=== PATIENT | male | born 1995 | race African-American/Black ===

== ENCOUNTER 2017-03-05 22:15 | Inpatient (IN) | payer SELFPAY ==
[~2017-03-05] VITALS: Ht 175.3 cm; Wt 108.9 kg
[2017-03-05 22:35] LABS: BASOPHIL (%) 0.7 % (0-1); BASOPHIL COUNT 0.1 K/uL (0-0.1); EOSINOPHIL (%) 1.5 % (0-5); EOSINOPHIL COUNT 0.2 K/uL (0-0.3); HEMOGLOBIN 14.3 G/DL (12.5-16.6); IMMATURE GRANULOCYTE (%) 0.9 % (0.0-0.7); LYMPHOCYTE (%) 34.9 % (15-42); LYMPHOCYTE COUNT 4.2 K/uL (1.0-2.8); MCH 28.8 PG (29.0-34.0); MCHC 34.9 G/DL (30.0-36.0); MCV 82.5 FL (86-99); MONOCYTE (%) 9.1 % (3-12); MONOCYTE COUNT 1.1 K/uL (0-0.8); NEUTROPHIL (%) 52.9 % (45-76); NEUTROPHIL COUNT 6.4 K/uL (1.8-6.4); PLATELET COUNT 247 K/uL (156-360); RBC DIS.WIDTH-CV 12.9 % (11.8-14.6); RBC DIS.WIDTH-SD 38.9 % (39-53); RED BLOOD COUNT 4.97 M/uL (4.00-5.50)
[2017-03-05 22:56] LABS: AMYLASE 60 IU/L (1-118); CHLORIDE 104 mEq/L (99-109); POTASSIUM 3.3 mEq/L (3.7-5.4); SODIUM 140 mEq/L (136-147)
[2017-03-05 22:58] LABS: GLUCOSE 168 mg/dL (70-99)
[2017-03-05 23:01] LABS: SERUM ETHYL ALCOHOL < 10 mg/dL
[2017-03-05 23:02] LABS: GFR ESTIMATE (CALCULATED) > 59 mL/min/ (58.99-99999)
[2017-03-05 23:03] LABS: UREA NITROGEN (BUN) 11 mg/dL (9-23)
[2017-03-05 23:05] LABS: LIPASE 10 U/L (1.0-51.0)
[2017-03-05 23:30] LABS: APPEARANCE CLEAR ((CLEAR)); BILIRUBIN NEGATIVE; BLOOD NEGATIVE; COLOR YELLOW ((YELLOW)); GLUCOSE (STRIP) 50; KETONES NEGATIVE; LEUKOCYTES NEGATIVE; NITRITE NEGATIVE; PROTEIN (STRIP) NEGATIVE; SPECIFIC GRAVITY 1.021 (1.000-1.030); UCUL ADDED? NO; UROBILINOGEN 0.2 MG/DL (0.2-1.0)
[2017-03-05 23:37] LABS: AMPHETAMINE NEGATIVE (500 ng/mL); BARBITURATES NEGATIVE (200 ng/mL); BENZODIAZEPINES NEGATIVE (150 ng/mL); BUPRENORPHINE NEGATIVE (10 ng/mL); COCAINE NEGATIVE (150 ng/mL); METHADONE NEGATIVE (200 ng/mL); METHAMPHETAMINE NEGATIVE (500 ng/mL); OPIATES (MORPHINE) NEGATIVE (100 ng/mL); OXYCODONE NEGATIVE (100 ng/mL); PHENCYCLIDINE NEGATIVE (25 ng/mL); PROPOXYPHENE NEGATIVE (300 ng/mL); THC CANNABINOIDS PRESUMPTIVE POSITIVE (50 ng/mL); TRICYCLIC ANTIDEPRESSANTS NEGATIVE (300 ng/mL)
[2017-03-05 23:55] LABS: BASE EXCESS -0.2 mEq/L (-3 to +3); BICARBONATE 22.8 mEq/L (22-26); CARBOXY HGB 1.7 % (0-5); METHEMOGLOBIN 1.4 % (0-1.5); PCO2 32 mm Hg (35-45); PO2 202 mm Hg (80-100); pH 7.46 (7.35-7.45)
[2017-03-05 23:56] LABS: COMMENTS - BLOOD GASES C+; DEVICE VENT; FI02 100 %; MECHANICAL RATE 18 resp/min; MODE AC; PEEP 5 CM/H20; SITE RR; TIDAL VOLUME 600 ML; TOTAL RESP RATE 18 resp/min
[2017-03-06] VITALS (21 sets, daily range): BP systolic 98–175; BP diastolic 59–100
[2017-03-06 00:09] LABS: HEMATOCRIT 41.1 % (38.0-50.0); MCV 81.4 FL (86-99)
[2017-03-07] VITALS (19 sets, daily range): BP systolic 136–167; BP diastolic 76–99
[2017-03-07 06:33] LABS: BASOPHIL (%) 0.5 % (0-1); BASOPHIL COUNT 0.1 K/uL (0-0.1); EOSINOPHIL (%) 1.8 % (0-5); EOSINOPHIL COUNT 0.3 K/uL (0-0.3); HEMATOCRIT 34.9 % (38.0-50.0); IMMATURE GRANULOCYTE (%) 0.5 % (0.0-0.7); LYMPHOCYTE (%) 8.4 % (15-42); LYMPHOCYTE COUNT 1.3 K/uL (1.0-2.8); MCH 28.4 PG (29.0-34.0); MCHC 34.1 G/DL (30.0-36.0); MCV 83.3 FL (86-99); MONOCYTE (%) 12.3 % (3-12); MONOCYTE COUNT 1.9 K/uL (0-0.8); NEUTROPHIL (%) 76.5 % (45-76); NEUTROPHIL COUNT 11.7 K/uL (1.8-6.4); RBC DIS.WIDTH-CV 13.3 % (11.8-14.6); RBC DIS.WIDTH-SD 40.7 % (39-53); RED BLOOD COUNT 4.19 M/uL (4.00-5.50); WHITE BLOOD COUNT 15.3 K/uL (4.1-10.2)
[2017-03-07 06:34] LABS: HEMOGLOBIN 11.9 G/DL (12.5-16.6)
[2017-03-07 06:44] LABS: ALBUMIN 3.4 G/DL (3.2-4.8); ALKALINE PHOSPHATASE 51 IU/L (3-129); ALT (GPT) 16 IU/L (3-49); AST (GOT) 19 IU/L (2-34); CHLORIDE 98 MEQ/L (99-109); CREATININE 0.7 MG/DL (0.6-1.3); GFR ESTIMATE (CALCULATED) > 59 mL/min/ (58.99-99999); MAGNESIUM 1.8 mg/dl (1.3-2.7); PHOSPHORUS 3.1 mg/dL (2.5-4.9); POTASSIUM 3.6 MEQ/L (3.7-5.4); SODIUM 136 MEQ/L (136-147); TOTAL BILIRUBIN 0.9 MG/DL (0.0-1.0); TOTAL PROTEIN 5.5 G/DL (6.4-8.3); UREA NITROGEN (BUN) 8 mg/dL (9-23)
[2017-03-07 06:45] LABS: GLUCOSE 102 mg/dL (70-99)
[2017-03-07 07:43] LABS: PLAT.SUFFICIENCY ADEQUATE
[2017-03-07 07:45] LABS: PLATELET COUNT 166 K/uL (156-360)
[2017-03-08] VITALS (15 sets, daily range): BP systolic 128–162; BP diastolic 70–98
[2017-03-09] VITALS (8 sets, daily range): BP systolic 137–147; BP diastolic 67–90
[2017-03-09 05:56] LABS: CHLORIDE 99 MEQ/L (99-109); CREATININE 0.8 MG/DL (0.6-1.3); GFR ESTIMATE (CALCULATED) > 59 mL/min/ (58.99-99999); GLUCOSE 89 mg/dL (70-99); HEMATOCRIT 34.2 % (38.0-50.0); HEMOGLOBIN 11.8 G/DL (12.5-16.6); MCH 28.7 PG (29.0-34.0); MCHC 34.5 G/DL (30.0-36.0); MCV 83.2 FL (86-99); PLATELET COUNT 214 K/uL (156-360); POTASSIUM 3.8 MEQ/L (3.7-5.4); RBC DIS.WIDTH-CV 13.1 % (11.8-14.6); RBC DIS.WIDTH-SD 39.7 % (39-53); RED BLOOD COUNT 4.11 M/uL (4.00-5.50); SODIUM 137 MEQ/L (136-147); UREA NITROGEN (BUN) 8 mg/dL (9-23); WHITE BLOOD COUNT 10.9 K/uL (4.1-10.2)
[2017-03-10 04:31] VITALS: BP 136/61
[2017-03-10 07:20] VITALS: BP 144/83
[2017-03-10 11:16] VITALS: BP 137/79
[2017-03-10 19:40] VITALS: BP 139/79
[2017-03-10 23:32] VITALS: BP 128/79
[2017-03-11 08:15] VITALS: BP 140/88
[2017-03-11 15:28] VITALS: BP 141/80
[2017-03-11] MEDS ORDERED: NORCO 5/3251 TABLET PO (19:37)
[2017-03-11] MEDS ORDERED: DOCUSATE SODIU100 MG PO (19:39)
== END 2017-03-11 21:25 | disposition home or self-care (01) | DRG 913 ==
LOC: TRA 22:15 → EDOF 03-06 00:31 → 4WEST 03-06 00:31 → ENRESERV 03-06 00:32 → 4WEST 03-06 03:50 → ENRESERV 03-09 07:32 → 4WEST 03-09 07:32 → 3EAST 03-09 08:36
PROVIDERS: Emergency Medicine; Thoracic Surgery (Cardiothoracic Vascular Surgery)
PROC: 02HV33Z Insertion of Infusion Device into Superior Vena Cava, Percutaneous Approach (ICD-10-PCS; principal; 2017-03-06)
PROC: 30233N1 Transfusion of Nonautologous Red Blood Cells into Peripheral Vein, Percutaneous Approach (ICD-10-PCS; principal; 2017-03-06)
PROC: 0W9B30Z Drainage of Left Pleural Cavity with Drainage Device, Percutaneous Approach (ICD-10-PCS; principal; 2017-03-06)
PROC: 0BH17EZ Insertion of Endotracheal Airway into Trachea, Via Natural or Artificial Opening (ICD-10-PCS; principal; 2017-03-06)
PROC: 5A1935Z Respiratory Ventilation, Less than 24 Consecutive Hours (ICD-10-PCS; principal; 2017-03-06)
DX: S21.342A Puncture wound with foreign body of left front wall of thorax with penetration into thoracic cavity, initial encounter (principal); S27.331A Laceration of lung, unilateral, initial encounter; T79.7XXA Traumatic subcutaneous emphysema, initial encounter; S27.2XXA Traumatic hemopneumothorax, initial encounter; W34.00XA Accidental discharge from unspecified firearms or gun, initial encounter; S22.32XA Fracture of one rib, left side, initial encounter for closed fracture; J96.00 Acute respiratory failure, unspecified whether with hypoxia or hypercapnia; E87.6 Hypokalemia; D62 Acute posthemorrhagic anemia; F12.90 Cannabis use, unspecified, uncomplicated; Z23 Encounter for immunization
CPT/HCPCS: 36600; 70450; 71045; 71046; 71260; 72125; 72129; 72132; 74177; 80048; 80053; 81003; 82150; 82803; 83690; 83735; 84100; 84999; 85014; 85018; 85025; 85027; 86850; 86900; 86901; 86920; 87070; 87205; 87641; 93005; 94002; 94010; 94640; 94640 76; 97530 GO; 99281; 99285; C1751; G0480; J1170; J2405; J2704; J3010; J7120; P9016; S0028